=== PATIENT | male | born 1965 | race Caucasian/White ===

== ENCOUNTER → 2023-12-29 13:18 | Outpatient (REF) | payer BC, SELFPAY | LOC: HWRAD 13:18 | PROVIDERS: ATTENDING PHYSICIAN Family Medicine | DX: R10.9 Unspecified abdominal pain (principal) | CPT/HCPCS: 74177; Q9967 ==

== ENCOUNTER 2023-12-29 19:55 | Day surgery (SDC) | payer BC, SELFPAY ==
[2023-12-29] VITALS (8 sets, daily range): BP systolic 115–137; BP diastolic 50–83; BMI 27.1
[2023-12-29 18:17] LABS: % Basophils 0.3 % (0-2); % Eosinophils 0.8 % (0-6); % Immature Granulocytes 0.3 % (0-0.5); % Lymphocytes 12.8 % (20.5-51.1); % Neutrophils 77.8 % (42.2-75.2); Absolute Eosinophils 0.1 10^3/uL (0-0.7); Absolute Lymphocytes 1.3 10^3/uL (1.2-3.4); Absolute Monocytes 0.8 10^3/uL (0.1-0.6); Absolute Neutrophils 7.9 10^3/uL (1.4-6.5); Hemoglobin 13.4 g/dL (13.0-18.0); Mean Corp Hgb Conc. 36.2 g/dL (33.0-37.0); Mean Corpuscular Volume 88.3 fL (80.0-94.0); Mean Platelet Volume 8.8 fL (7.4-10.4); Nucleated Red Blood Cells % 0 % (-); Platelet Count 273 10^3/uL (130-400); Red Blood Cell Count 4.19 10^6/uL (4.70-6.10); Red Cell Dist. Width 12.5 % (11.5-14.5); White Blood Cell Count 10.2 10^3/uL (4.8-10.8)
--- NOTE | 2023-12-29 18:23 | ED.GENMED ---
History of Present Illness
General
Chief Complaint: Abdominal Symptoms
Source: patient
Time Seen by Provider: 12/29/23 18:13
History of Present Illness
History of Present Illness:
58yoM with a history of ADHD presenting for evaluation of abdominal pain. He reports RLQ pain that he woke up with yesterday morning. The pain has been constant and has been gradually worsening. Pain is worse with movement. He endorses subjective
fevers and chills. He was seen by his PCP today for these symptoms and was sent for an outpatient CT. CT abdomen showed acute appendicitis and he was sent to the ED for evaluation. Patient is otherwise asymptomatic. No previous abdominal surgeries.
Past History
Past History
ED Past Medical History: None
ED Past Surgical History: None
Social History
Tobacco: Non-smoker
Phy Exam
Physical Exam
Physical Exam:
+RLQ tenderness with rebound and voluntary guarding.
General Physical Exam
General Presentation: well appearing and no apparent distress
General age: appears stated age
General Skin: warm and dry
General Habitus: normal
General Mental: alert
Pulmonary Exam
Pulmonary Exam: no respiratory distress
Gastrointestinal Exam
Gastrointestinal Exam: non distended and rebound
Palpation: right lower quadrant: Moderate tenderness
Course
Orders/Labs/Results
Orders:
Orders
12/29/23 Dinner
NPO
Allow oral meds: No
Allow clear liquids: No
NPO with Ice Chips: No
Regular
At Your Request: Full Participation
12/29/23 17:58
IV Insert/Care/Rem.- Treatment PRN
12/29/23 18:08
Complete Blood Count/With Diff Urgent
Comprehensive Metabolic Panel Urgent
12/29/23 18:23
0.9% Sodium Chloride 1000 ml [Nss] 1,000 ml IV BOLUS
Ketorolac [Toradol] 15 mg IV NOW STA
12/29/23 18:34
Piperacillin/Tazo 3.375 Gram [Zosyn] 3.375 gram in 50 ml IV NOW
12/29/23 18:49
HYDROmorphone [Dilaudid] 0.25 mg IV PACU-Q5MPRN PRN
HYDROmorphone [Dilaudid] 0.5 mg IV PACU-Q5MPRN PRN
Meperidine [Demerol] 12.5 mg IV PACU-Q5MPRN PRN
Ondansetron Injectable [Zofran] 4 mg IV PACU-ONCEPRN PRN
Prochlorperazine [Compazine] 5 mg IV PACU-ONCEPRN PRN
Notify MD As Directed
Notify physician if: for SDS patients with known or suspected sleep obstructive sleep apnea, monitor in the
PACU.
Notify MD for any apneic/desaturation episodes
O2 Therapy [RESP] Urgent
Titrate/Wean O2 to maintain O2 sat greater than (%): 92
Special Instructions: -Provide supplemental oxygen to achieve O2 sat of 92% or greater.
-After 15 min, may wean O2 and discontinue if patient is able to maintain O2 sat of 92%
or greater during recovery period.
If patient is a discharge home, without oxygen therapy, notify anestheiologist if
unable to maintain O2 SAT of 92% or greater on room air for MD clearance.
12/29/23 19:00
Normosol (Mult Electrolytes) [Normosol-R] 1,000 ml IV PER PROTOCOL
12/29/23 19:17
Admit/Transfer Patient As Directed
Co-Sign Provider:
Level of Care: Post Proc/Surg Recovery
Assign to:: Medical/Surgical
Physician / Group: dr sandoval
Diagnosis: acute appendicitis
Reason for Overnight Stay: Standard of Care
12/29/23 19:29
Code Status As Directed
Resuscitation Status: Full Code
12/29/23 19:35
Dexamethasone Sod Phosphate [Decadron] 20 mg .ROUTE .STK-MED ONE
Fentanyl Citrate/Pf [Sublimaze] 100 mcg .ROUTE .STK-MED ONE
Lidocaine HCl/Pf [Xylocaine-Mpf 1% Vial] 50 mg .ROUTE .STK-MED ONE
Midazolam HCl [Versed] 2 mg .ROUTE .STK-MED ONE
Ondansetron Injectable [Zofran] 4 mg .ROUTE .STK-MED ONE
Propofol [Diprivan] 20 ml .ROUTE .STK-MED
Rocuronium Staley [Rocuronium] 50 mg .ROUTE .STK-MED ONE
12/29/23 20:05
OR Pathology Routine
Pre-Operative Diagnosis: acute appendicitis
Post-Operative Diagnosis: same
Operative Procedure: laparoscopic appendectomy
Surgeon: alison
Circulating Nurse: ines
Specimen Type: appendix
12/29/23 20:17
Sugammadex Sodium [Bridion] 200 mg .ROUTE .STK-MED ONE
12/29/23 21:05
Admit Patient As Directed
Co-Sign Provider:
Level of Care: Post Proc/Surg Recovery
Assign to:: Medical/Surgical
Physician / Group: Dr. Sandoval
Diagnosis: Acute appendicitis
Reason for Overnight Stay: Standard of Care
HYDROmorphone [Dilaudid] 0.5 mg IV Q2HPRN PRN
Ondansetron Injectable [Zofran] 4 mg IV Q6HPRN PRN
Oxycodone [Roxicodone] 5 mg PO Q4HPRN PRN
Activity As Directed
Activity Level: Out of Bed-Early Mobility
Intake/ Output As Directed
Frequency: Per unit guidelines
Vital Signs As Directed
Frequency: Per unit guidelines
12/29/23 21:06
Acetaminophen [Tylenol] 650 mg PO Q4HPRN PRN
Benzocaine/Menthol [Anesthetic Lozenge] 1 lozenge PO Q4HPRN PRN
Docusate Sodium [Colace] 100 mg PO BIDPRN PRN
Polyethylene Glycol Powder [Miralax] 17 grams PO DAILYPRN PRN
12/29/23 21:06
Activity As Directed
Activity Level: Out of Bed-Early Mobility
Anti-embolism (MIHIR) Hose As Directed
Type: Thigh high
Intake/ Output As Directed
Frequency: Per unit guidelines
Pneumatic Compression Sleeves As Directed
Type: Thigh high
Vital Signs As Directed
Frequency: Per unit guidelines
Rx Incentive Spirometry [RESP] Routine
Frequency: q1h while awake
# of times per hour: 10
DX Deep Vein Thrombosis Video Routine
12/29/23 21:47
HYDROmorphone [Dilaudid] 0.25 mg .ROUTE .STK-MED ONE
12/30/23 00:00
Acetaminophen [Tylenol] 650 mg PO Q6
Ketorolac [Toradol] 10 mg IV Q6H
Piperacillin/Tazo 3.375 Gram [Zosyn] 3.375 gram in 50 ml IV Q6H
12/30/23 06:00
Complete Blood Count/With Diff IN AM
Abnormal Lab Results
12/29/23
18:08
RBC 4.19 L 10^6/uL
(4.70-6.10)
Hct 37.0 L %
(39.0-52.0)
MCH 32.0 H pg
(27.0-31.0)
Absolute Neuts (auto) 7.9 H 10^3/uL
(1.4-6.5)
Absolute Monos (auto) 0.8 H 10^3/uL
(0.1-0.6)
Neutrophils % 77.8 H %
(42.2-75.2)
Lymphocytes % 12.8 L %
(20.5-51.1)
12/29/23 18:08
12/29/23 18:08
Vital Signs
Initial and Last Documented VS:
Initial Vital Signs
Temp Pulse Resp BP Pulse Ox
98.2 F 102 16 131/83 98
12/29/23 16:35 12/29/23 16:35 12/29/23 16:35 12/29/23 16:35 12/29/23 16:35
Last Documented Vital Signs
Temp Pulse Resp BP Pulse Ox
98.0 F 90 16 123/73 96
12/29/23 22:15 12/29/23 22:15 12/29/23 22:15 12/29/23 22:15 12/29/23 22:15
MDM/Problems Addressed
Differential Diagnosis Includes:
58yoM here with acute appendicitis. C/o RLQ pain x [address] confirmed appendicitis. He is afebrile and hemodynamically stable. He is acutely nontoxic appearing. There is focal tenderness in the right lower quadrant on exam with
associated rebound tenderness.
Case was discussed with Dr. Sandoval, general surgeon. IV Zosyn ordered. Patient made NPO and he was admitted for further management.
*Critical Care Note
Total Time (30-74mins, 75-104mins- exclusive of procedures): Not Applicable
ED Attending Note
-
Portions of this chart may have been created with voice recognition software.� Occasional wrong word or��sound alike� substitutions may have occurred due to the inherent limitations of voice recognition software.
Discharge Plan
Departure
Patient Disposition: Admit
Date of Disposition: 12/29/23
Time of Disposition: 19:03
Presentation/result/management discussed w/ accepting MD/DO: Dr. Sandoval, surgery
Discharge Problem:
Acute appendicitis
Interventions
Interventions:
*Risk Screen - Suicide Last Done: 12/29/23 18:04
*General Assessment Last Done: 12/29/23 18:04
*Neglect/Abuse Screening Last Done: 12/29/23 18:04
*ED COVID-19 Vaccine History Last Done: 12/29/23 18:04
*Nursing Disposition Last Done: 12/29/23 19:40
KO-Xtgbvs-Hzacoqmxlw Assessment Last Done: 12/29/23 18:04
Discharge Date and Time
Discharge Date/Time: 12/29/23 19:40
[2023-12-29 18:39] LABS: ALT (SGPT) 27 U/L (0-50); AST (SGOT) 23 U/L (17-59); Albumin 4.4 g/dl (3.5-5.0); Alkaline Phosphatase 79 U/L (38-126); Blood Urea Nitrogen 15 mg/dl (9-20); Calcium 9.3 mg/dl (8.4-10.2); Carbon Dioxide 23 mmol/L (22-30); Chloride 103 mmol/L (98-107); Estimated Creatinine Clearance 103 ml/min; Glucose 98 mg/dl (70-99); Sodium 136 mmol/L (135-145); Total Bilirubin 1.2 mg/dl (0.2-1.3); Total Protein 7.2 g/dl (6.3-8.2); eGFR > 60.00
[2023-12-29] MEDS: NSS 1000 IV (18:45)
[2023-12-29] MEDS: ZOSYN 50 IV ×2 (18:46→23:22)
[2023-12-29] MEDS: TORADOL 15 MG IV (18:46)
--- NOTE | 2023-12-29 19:50 | W.SUR.PREOP ---
Pre-Operative Surgical Note
-
I have examined this patient prior to the performance of the scheduled procedure.
The patient's condition is unchanged from the time of the current History and
Physical and the patient is able to undergo the scheduled procedure.
--- NOTE | 2023-12-29 19:51 | HPS.HSE ---
Family Physician
-
Family Physician: Ethan Andrews
Chief Complaint
-
Right lower quadrant abdominal pain
History of Present Illness
This is a 58-year-old male with no significant past medical history who presents with a 1 day history of worsening abdominal pain now focal to the right lower quadrant. Endorses fevers and chills at home. He was seen by his PCP today for the
symptoms and was sent for an outpatient CT scan which revealed acute appendicitis and he was sent to our ED for further evaluation and management. The patient denies Chest Pain, Shortness Of Breath, Nausea, Vomiting, changes in urinary and bowel
habits, unintentional weight loss.
Medical History
Past Medical History
Past Medical History: Reports None
Past Surgical History: Reports None
Social History
Tobacco: Non-smoker
Family History
Family History: Not pertinent
Allergies / Home Medications
Allergies reflects when Allergies were last updated in [employer].
Home Medications with original date entered in [employer]
Allergy/Medication List:
No known drug allergies.
The only medication he takes is guanfacine for ADHD but he has not taken this in several days.
Review of Systems
-
A 12 point ROS was completed and negative except as noted: Yes
Physical Exam
Vital Signs
Vital Signs
Temp Pulse Resp BP Pulse Ox
98.2 F 102 16 131/83 98
12/29/23 16:35 12/29/23 16:35 12/29/23 16:35 12/29/23 16:35 12/29/23 16:35
Physical Exam
General: Well Developed
HEENT: NormoCephalic
Respiratory: Non Labored Respirations
GI: Soft, Non Distended and Tender
Laboratory Results
-
12/29/23 18:08
12/29/23 18:08
Laboratory Results
Total Bilirubin 1.2 mg/dl (0.2-1.3) 12/29/23 18:08
AST 23 U/L (17-59) 12/29/23 18:08
ALT 27 U/L (0-50) 12/29/23 18:08
Alkaline Phosphatase 79 U/L (38-126) 12/29/23 18:08
Data Reviewed
-
CT Scan: Image Personally Visualized and interpreted, Discussed with Physician and Discussed with Patient
Lab Data: Labs Reviewed by me, Discussed with Physician and Discussed with Patient
Impression/Plan
-
IMPRESSION: This is a 58-year-old male who presents with acute appendicitis
PLAN: Will plan for laparoscopic appendectomy today.
N.p.o., IV fluids, IV antibiotics.
Risks/Benefits/Alternatives, expected postoperative course and possible complications (bleeding, infection, injury to surrounding structures, acute/chronic pain) discussed at length. Patient wishes to proceed with surgery. All questions answered.
Consent obtained.
I spent roughly 60 minutes in total for the care of this patient today including direct patient care and counseling, reviewing labs, imaging, coordination of care, as well as documentation.
--- NOTE | 2023-12-29 21:02 | W.IMMPOSTOP ---
Addendum entered and electronically signed by Ismael Sandoval MD 12/30/23 08:58:
Operative Findings should read: 'Acutely inflamed appendicitis with some necrosis but no ray perforation or abscess. The proximal half of the appendix was found in the retroperitoneum which had to be unroofed in order to trace the appendix to the
true base of the cecum. The base was ligated with x2 0-PDS Endoloops. There was a little bit of diffuse oozing in the surgical bed, this stopped with application of 1 g of Mindy.'
Original Note:
Surgical Immed Post Op Note
-
Primary Surgeon: Ismael Sandoval MD
Assisting Surgeon: None
Pre-op Diagnosis: Acute appendicitis
Post-op Diagnosis: Same
Procedure Performed: Laparoscopic appendectomy
Anesthesia Type: General
Specimen / Cultures: Appendix
Estimated Blood Loss: 7 cc
Complications: None
Operative Findings: Acutely inflamed appendicitis with some necrosis but no ray perforation or abscess. The proximal half of the appendix was found in the retroperitoneum which had to be unroofed in order to traced the appendix to the true base
of the cecum. Here was ligated with 2-0 PDS Endoloops. There was a little bit of diffuse oozing in the surgical bed this stopped with application of 1 g of Mindy.
POST OP PLAN:
Imaging: None
Labs: Routine AM
Diet: Advance to Regular as tolerated
Analgesia: Tylenol 650mg q6 Nino, Asha 5mg q6 PRN, Dilaudid 0.5mg q2h PRN
Neuro/vascular checks: q4h
AC/AP: Hold Therapeutic AC, Ok for DVT PPx
Activity: Ad Emili
Wound/Incisions/Drains: Routine
Abx: Zosyn/equivalent x 4 days.
Dispo: RNF, anticipate discharge home tomorrow.
--- NOTE | 2023-12-29 21:10 | OR.RPT ---
Addendum entered and electronically signed by Ismael Sandoval MD 12/30/23 08:58:
Operative Findings should read: 'Acutely inflamed appendicitis with some necrosis but no ray perforation or abscess. The proximal half of the appendix was found in the retroperitoneum which had to be unroofed in order to trace the appendix to the
true base of the cecum. The base was ligated with x2 0-PDS Endoloops. There was a little bit of diffuse oozing in the surgical bed, this stopped with application of 1 g of Mindy.'
Original Note:
Operative Report
Operative Report
Patient Name: Reagan Thomson
: 1965
Date of Operation: 12/29/2023
Preoperative Diagnosis: Acute Appendicitis
Postoperative Diagnosis: Same
Procedure(s):
Laparoscopic Appendectomy
Surgeon(s):
Dr. Sandoval
Collection Development Librarian(s):
None
Anesthesia: General
Estimated Blood Loss: 7 cc
Urine Output: None
Drains/Lines/Implants: None
Specimens:
1. Appendix
HPI/Surgical Indications:
This is a 58 year old male who presents with a 1 day history of abdominal pain. Exam, labs and imaging are consistent with acute appendicitis. Risks/Benefits/Alternatives were discussed at length, and the patient agreed to proceed with surgery.
Operative Findings: Acutely inflamed appendicitis with some necrosis but no ray perforation or abscess. The proximal half of the appendix was found in the retroperitoneum which had to be unroofed in order to traced the appendix to the true base
of the cecum. Here was ligated with 2-0 PDS Endoloops. There was a little bit of diffuse oozing in the surgical bed this stopped with application of 1 g of Mindy.
Procedure Description:
The patient was placed in the supine position, with the left arm tucked, and general anesthesia was induced. The abdomen was prepared and draped in a sterile fashion so as to expose the entire abdomen. A surgical time out was taken. Abdominal access
was obtained with an 5mm infra-umbilical Braulio Entry. After confirming no injury on entrance, two additional 5mm ports were placed in the suprapubic area just off midline and in the left lower quadrant. The patient was placed in Trendelenberg with
the right slightly up . The appendix was identified and and was noted to have some necrosis along the wall however the base of the appendix was not clearly identified, it appeared to be diving down into the retroperitoneum. We did identify the base
of the cecum but it was unclear where the appendix started. We did identify the terminal ileum as well as the fold of Treves which appeared to be in uninvolved. We began by ligating the mesoappendix with LigaSure until we were able to get onto the
true lumen of the appendix. We then traced this down into the retroperitoneum taking care to slowly advance along the serosa of the appendix till we were able to identify the true base which appeared uninvolved. The base was ligated/divided using
two 0-PDS Endoloops and the energy device. The appendix was placed in a specimen retrieval bag. Hemostasis was confirmed and achieved with the help of 1 g of Mindy in the surgical bed as there was some oozing noted from our dissection. The 5 mm
umbilical port was closed with a [id number] 0 PDS suture and ports were removed under visualization. The specimen was passed off the field. The skin for all three ports was closed with interrupted monocryls and covered with dermabond. The
patient was awoken from anesthesia in good condition and transported to the recovery area.
I was the attending physician and performed the procedure with no assistance. I was present for all portions of the case
Ismael Sandoval MD
[2023-12-29] MEDS: DILAUDID 0.25 MG IV (21:47)
[2023-12-29] MEDS: TORADOL 10 MG IV (23:20)
[2023-12-29] MEDS: TYLENOL 650 MG PO (23:21)
[2023-12-30 00:15] VITALS: BP 124/73
--- NOTE | 2023-12-30 00:33 | TRANSFER ---
Pt transferred from PACU to unit by bed. AAXO3. Abdomen has 3 lap sites; surgical glue is dry and intact. Pain 2/10. Pt able to make needs known. Pt oriented to room with call matamoros in reach. Plan of care ongoing.
[2023-12-30 01:15] VITALS: BP 111/67
[2023-12-30 03:15] VITALS: BP 112/68
[2023-12-30] MEDS: TORADOL 10 MG IV (06:22)
[2023-12-30] MEDS: TYLENOL 650 MG PO (06:24)
[2023-12-30] MEDS: ZOSYN 50 IV (06:24)
[2023-12-30 07:00] VITALS: BP 125/73
[2023-12-30 08:47] LABS: % Basophils 0.1 % (0-2); % Immature Granulocytes 0.3 % (0-0.5); % Lymphocytes 7.1 % (20.5-51.1); % Monocytes 3.7 % (1.7-9.3); % Neutrophils 88.8 % (42.2-75.2); Absolute Lymphocytes 0.7 10^3/uL (1.2-3.4); Absolute Monocytes 0.4 10^3/uL (0.1-0.6); Absolute Neutrophils 8.4 10^3/uL (1.4-6.5); Hematocrit 37.4 % (39.0-52.0); Hemoglobin 13.4 g/dL (13.0-18.0); Mean Corp Hgb Conc. 35.8 g/dL (33.0-37.0); Mean Corpuscular Hgb 32.4 pg (27.0-31.0); Mean Corpuscular Volume 90.3 fL (80.0-94.0); Mean Platelet Volume 9.2 fL (7.4-10.4); Nucleated Red Blood Cells % 0 % (-); Platelet Count 286 10^3/uL (130-400); Red Blood Cell Count 4.14 10^6/uL (4.70-6.10); Red Cell Dist. Width 12.3 % (11.5-14.5); White Blood Cell Count 9.4 10^3/uL (4.8-10.8)
--- NOTE | 2023-12-30 12:19 | W.PN.GS2 ---
Today's Communication / Plan
-
-- Antibiotics: Zosyn, plan for transition to Augmentin for 4 days postoperatively
-- DC today
Assessment / Plan
-
Patient is a 58 yo M POD#1 s/p laparoscopic appendectomy
Recovering well. No postoperative concerns.
-- Regular diet
-- Pain control: Tylenol, Toradol, oxycodone
-- Antibiotics: Zosyn, plan for transition to Augmentin for 4 days postoperatively
-- HLIV
-- DC today
Subjective Data
-
Date of Service: December 30, 2023
No complaints. Pain well-controlled. No nausea or vomiting. No fevers.
Objective Data
-
Intake and Output
12/29/23 12/30/23 12/31/23
06:59 06:59 06:59
Intake Total 580 / 580 75 / 75
Output Total 650 / 650
Balance -70 / -70 75 / 75
Intake:
Oral fluids 480 / 480
IV fluids (Total) 100 / 100 25 / 25
Normosol 100 / 100
IV piggybacks 50 / 50
Output:
Urine, Voided 650 / 650
Vital Signs
Temp Pulse Resp BP Pulse Ox
97.7 F 81 16 125/73 97
12/30/23 07:00 12/30/23 07:00 12/30/23 07:00 12/30/23 07:00 12/30/23 08:07
Lab Results
12/30/23 08:02
12/29/23 18:08
Calcium 9.3 mg/dl (8.4-10.2) 12/29/23 18:08
Total Bilirubin 1.2 mg/dl (0.2-1.3) 12/29/23 18:08
AST 23 U/L (17-59) 12/29/23 18:08
ALT 27 U/L (0-50) 12/29/23 18:08
Alkaline Phosphatase 79 U/L (38-126) 12/29/23 18:08
Total Protein 7.2 g/dl (6.3-8.2) 12/29/23 18:
Albumin 4.4 g/dl (3.5-5.0) 12/29/23 18:08
Physical Exam
-
Gen: NAD
Abd: soft, appropriately tender, ND, non-peritoneal, incisions c/d/i - no erythema, ecchymosis, or drainage
[2023-12-30 13:25] VITALS: BP 123/74
--- NOTE | 2023-12-30 14:02 | CM ---
Patient seen bedside, patient for discharge today. Patient resides independently in a multiple story home, three steps to enter. Patient is independent with ADLs/IADLS, no DME, VN, or SNF history. Patient PCP Ethan Andrews, pharmacy [facility]
[place], confirms prescription coverage. Patient denies food, housing/utility, and transportation insecurities at home. Patient denies needs upon discharge. CM will continue to follow.
Plan; home no needs.
== END 2023-12-30 13:52 | disposition home or self-care (01) ==
LOC: SDS 19:55
PROVIDERS: ATTENDING PHYSICIAN Surgery; EMERGENCY PHYSICIAN Emergency Medicine; FAMILY PHYSICIAN Family Medicine
DX: K35.80 Unspecified acute appendicitis (principal)
CPT/HCPCS: 44970; 88304; 80053; 85025; 96365; 96375; 99285